=== PATIENT | male | born 1970 | race African-American/Black ===

== ENCOUNTER → 2017-07-12 | Outpatient (CLI) | payer MEDICAID | END | disposition home or self-care (01) | LOC: RADPV 11:45 | PROVIDERS: ATTEND Orthopaedic Surgery | DX: M17.0 Bilateral primary osteoarthritis of knee (principal); M11.261 Other chondrocalcinosis, right knee; M25.762 Osteophyte, left knee; M25.761 Osteophyte, right knee ==